=== PATIENT | female | born 1960 | race Caucasian/White ===

== ENCOUNTER 2016-07-17 14:20 | Emergency (ER) | payer MEDICAID ==
[~2016-07-17] VITALS: Ht 182.9 cm; Wt 76.2 kg
[2016-07-17] MEDS ORDERED: KLONOPIN0.5 MG PO (15:45)
[2016-07-17] MEDS ORDERED: NORCO 325-5 MG1 TAB PO (15:46)
[2016-07-17] MEDS ORDERED: HYDROXYZINE HCL25 MG PO (15:46)
[2016-07-17] MEDS ORDERED: LYRICA25 MG PO (15:46)
[2016-07-17] MEDS ORDERED: ELAVIL10 MG PO (15:47)
[2016-07-17] MEDS ORDERED: SAVELLA50 MG PO (15:47)
[2016-07-17] MEDS ORDERED: HALFPRIN81 MG PO (15:48)
== END 2016-07-17 15:40 | disposition short-term general hospital (02) ==
LOC: ER 14:20
DX: S82.64XA Nondisplaced fracture of lateral malleolus of right fibula, initial encounter for closed fracture (principal); S80.01XA Contusion of right knee, initial encounter; Z88.0 Allergy status to penicillin; Z88.5 Allergy status to narcotic agent; Z88.6 Allergy status to analgesic agent; Z88.4 Allergy status to anesthetic agent; W00.0XXA Fall on same level due to ice and snow, initial encounter